=== PATIENT | female | born 1965 | race Caucasian/White ===

== ENCOUNTER 2022-01-25 08:07 | Outpatient (CLI) | payer OTHER, SELFPAY ==
[2022-01-25 21:10] LABS: Alanine Aminotransferase 7 U/L (6-35); Albumin Level 4.2 g/dL (3.5-5.1); Alkaline Phosphatase 72 U/L (38-126); Anion Gap 9 mmol/L (8-16); Aspartate Amino Transferase 25 U/L (14-36); Bilirubin,Total 0.5 mg/dL (0.2-1.3); Blood Urea Nitrogen 11 mg/dL (7-17); Calcium 9.3 mg/dL (8.4-10.2); Carbon Dioxide 25 mmol/L (22-30); Chloride 103 mmol/L (98-107); Cholesterol 237 mg/dL (0-200); Estimated Glomerular Filt Rate > 60; Glucose 128 mg/dL (65-110); HDL Direct 67 mg/dL; Sodium 137 mmol/L (137-145); Triglycerides 54 mg/dL (<150)
[2022-01-25 21:28] LABS: LDL Cholesterol Direct 132 mg/dL
[2022-01-25 21:35] LABS: Basophils Percent Auto 0.5 % (0.2-1.2); Eosinophils Percent Auto 0.5 % (0-4.4); Hematocrit 43.1 % (37.0-47.0); Hemoglobin 14.2 g/dL (12.0-15.0); Immature Granulocyte Absolute 0.01 K/mm3 (0.00-0.031); Immature Granulocyte Percent A 0.2 % (0-0.5); Lymphocytes Percent Auto 33.6 % (18.3-44.2); Mean Corpuscular HGB Conc 32.9 g/dl (32-36); Mean Corpuscular Hemoglobin 30.2 pg (26-34); Mean Corpuscular Volume 91.7 fl (80-100); Mean Platelet Volume 11.1 fl (7.4-10.4); Monocytes Absolute Auto 0.4 K/mm3 (0.1-0.6); Monocytes Percent Auto 8.9 % (2.6-8.5); Neutrophils Absolute Auto 2.4 K/mm3 (1.3-6.7); Neutrophils Percent Auto 56.3 % (45.5-73.1); Platelet Count Result 184 k/mm3 (150-375); Red Cell Distribution Width 12.4 % (11.5-14.5); White Blood Count 4.2 K/mm3 (4.5-10.0)
== END 2022-01-25 08:08 | disposition home or self-care (01) ==
PROVIDERS: PCP Emergency Medicine; Visit Provider Emergency Medicine
DX: Z00.00 Encounter for general adult medical examination without abnormal findings (principal)
CPT/HCPCS: 36415; 80053; 80061; 84443; 85025

== ENCOUNTER 2023-05-04 21:11 | Emergency (ER) | payer OTHER, SELFPAY ==
--- NOTE | ~2023-05-04 | XR_ITS ---
EXAMINATION: XR chest 1V portable INDICATION: Weakness TECHNIQUE: Portable AP chest at 2150 hours COMPARISON: 12/16/2012 FINDINGS: The lungs are free of acute opacities. No pleural effusion or pneumothorax. The cardiomedia stinal silhouette is normal. IMPRESSION: 1. No acute cardiopulmonary abnormality. Reviewed, dictated and finalized at location F. OBGYN
[2023-05-04 21:11] VITALS: BP 116/70; PULSE 104; RESP 23; TEMP 37.2; O2SAT 100
--- NOTE | 2023-05-04 21:23 | ECG_ITS ---
Measurements Intervals [place] Rate: 103 P: 75 WA: 149 QRS: 50 QRSD: 93 T: 54 QT: 344 QTc: 452 Interpretive Statements SINUS TACHYCARDIA POSSIBLE LEFT ATRIAL ENLARGEMENT MINIMAL Q WAVES- ANTEROLAT/INF LEADS BASELINE ARTIFACT- I, AVR, AVL BORDERLINE ECG ABNORMAL RHYTHM ECG NO PREVIOUS ECG AVAILABLE FOR COMPARISON Electronically Signed On 05-05-2023 6:54:44 PAYABLE PROCESSOR by Fede Gagnon D.O.
[2023-05-04 21:25] VITALS: O2SAT 99
[2023-05-04] MEDS: SODIUM CHLORIDE 0.9% IV 1,000 ML 999 ML IV CONT ×2 (21:29→22:23)
[2023-05-04] MEDS: ACETAMINOPHEN 500 MG TABLET 1000 MG PO (21:29)
[2023-05-04] MEDS: ONDANSETRON INJ 4 MG/2 ML VIAL IV PUSH (21:29)
[2023-05-04 21:33] VITALS: O2SAT 96
[2023-05-04 21:43] LABS: Basophils Percent Auto 0.5 % (0.2-1.2); Eosinophils Absolute Auto 0.1 K/mm3 (0-0.3); Eosinophils Percent Auto 1.3 % (0-4.4); Hematocrit 42.9 % (37.0-47.0); Hemoglobin 13.6 g/dL (12.0-15.0); Immature Granulocyte Absolute 0.02 K/mm3 (0.00-0.031); Immature Granulocyte Percent A 0.3 % (0-0.5); Lymphocytes Absolute Auto 3.27 K/mm3 (0.9-3.2); Lymphocytes Percent Auto 51.3 % (18.3-44.2); Mean Corpuscular HGB Conc 31.7 g/dl (32-36); Mean Corpuscular Hemoglobin 29.8 pg (26-34); Mean Corpuscular Volume 93.9 fl (80-100); Mean Platelet Volume 10.1 fl (7.4-10.4); Monocytes Absolute Auto 0.6 K/mm3 (0.1-0.6); Monocytes Percent Auto 9.7 % (2.6-8.5); Neutrophils Absolute Auto 2.4 K/mm3 (1.3-6.7); Neutrophils Percent Auto 36.9 % (45.5-73.1); Platelet Count Result 222 k/mm3 (150-375); Red Blood Count 4.57 M/mm3 (4.2-5.4); Red Cell Distribution Width 12.3 % (11.5-14.5); White Blood Count 6.4 K/mm3 (4.5-10.0)
[2023-05-04 21:54] LABS: Partial Thromboplastin Time 24.7 SECONDS (22.3-36.8); Prothrombin Time 13.4 Seconds (11.1-14.7)
[2023-05-04 22:04] LABS: Alanine Aminotransferase 30 U/L (6-35); Albumin Level 4.5 g/dL (3.5-5.1); Alkaline Phosphatase 75 U/L (38-126); Anion Gap 20 mmol/L (8-16); Aspartate Amino Transferase 23 U/L (14-36); Bilirubin,Total 0.3 mg/dL (0.2-1.3); Blood Urea Nitrogen 12 mg/dL (7-17); Calcium 8.9 mg/dL (8.4-10.2); Carbon Dioxide 16 mmol/L (22-30); Chloride 103 mmol/L (98-107); Estimated Glomerular Filt Rate > 60; Glucose 174 mg/dL (65-110); Lipase 192 U/L (23-300); Potassium 3.1 mmol/L (3.4-5.0); Sodium 139 mmol/L (137-145)
--- NOTE | 2023-05-04 22:12 | PC.NURSE ---
Pt noted to have increased HR. This RN entered room to find on stretcher with upper and lower extremity tremors. Pt able to answer questions and follow commands. EDP notified.
[2023-05-04 22:14] LABS: Lactic Acid Reflex 10.3 mmol/L (0.7-2.0)
[2023-05-04 22:16] VITALS: BP 120/93; PULSE 126; RESP 30
[2023-05-04 22:16] LABS: Troponin I < 0.012 ng/mL (0.000-0.034)
[2023-05-04] MEDS: LORazepam INJ (*CRX) 2 MG/ML VIAL 1 MG IV PUSH (22:20)
[2023-05-04 22:22] LABS: Influenza A QL RT-PCR Negative (Negative); Influenza B QL RT-PCR Negative (Negative); RSV RNA, RT-PCR Negative (Negative); SARS-CoV-2 RNA PCR Negative (Negative)
[2023-05-04 23:19] VITALS: BP 125/91; PULSE 113; RESP 22; O2SAT 97
[2023-05-04 23:20] LABS: Appearance Urine Cloudy (Clear); Bacteria Urine 4+ /hpf; Bilirubin Urine Negative (Negative); Blood Urine Negative (Negative); Color Urine Yellow (Yellow); Glucose Urine UA Negative (Negative); Ketones Urine Negative (Negative); Leukocyte Esterase Ur 1+ LEU/UL (Negative); Need Manual Microscopic Reviewed; Nitrate Urine Positive (Negative); Protein Urine Trace mg/dL (Negative); RBC Urine 0-2 /hpf (0-2); Specific Grav Ur 1.018 (1.001-1.035); Squamous Epithelial Cell Urine None seen /hpf (Few); Urobilinogen Urine 0.2 mg/dL (<2.0); WBC Urine 51-100 /hpf; pH Urine 5.5 (5.0-9.0)
[2023-05-04 23:33] LABS: Add Urine Microscopic? YES
[2023-05-04 23:41] VITALS: PULSE 108; RESP 13; O2SAT 98
[2023-05-05 00:04] VITALS: TEMP 36.8
[2023-05-05 00:08] LABS: Lactic Acid Reflex 1.1 mmol/L (0.7-2.0)
--- NOTE | 2023-05-05 00:08 | ED.GENADULT ---
HPI - General Adult General Chief complaint: Unspecified Stated complaint: SEVERE MUSCLE SPASMS Time Seen by Provider: 05/04/23 21:16 History of Present Illness HPI narrative: Patient is a 57-year-old female who presents emergency department with chief complaint of tremors. Patient has prior history of Parkinson's and tonight had issues with uncontrolled tremors at home. The patient was given Versed by EMS and also had to be given Ativan in the emergency department. The patient currently is resting comfortably with minimal tremor at this time. The patient states they recently just to the brand of her medications and has had difficulty sleeping and difficulty with controlling her tremors. Related Data Allergies Allergy/AdvReac Type Severity Reaction Status Date / Time Sulfa (Sulfonamide Allergy Mild Swelling Verified 05/04/23 21:25 Antibiotics) Review of Systems Review of Systems: A 10 system review of systems was completed on the patient and is negative except for what is stated in the HPI. Nursing and ancillary documentation was reviewed. [facility] Social History Social History Smoking packs per day: 0 Smoking cigarettes per day: 0.0 Years smoked: 0 Smoking pack-years: 0.00 Smoking status: Never smoker Second hand tobacco smoke exposure: No Alcohol intake: current Alcohol use details: wine rarely Substance use: never Substance use type: does not use Do You Feel Safe in your Home?: Yes Lack of Transportation: No Lack of Food: Never True Current Housing: I Have Housing Concerned About Future Housing: No Difficulty Paying Gas/Electric Bills: No Difficulty Paying for Meds: No Currently Unemployed: No Education: Bachelor's Degree Difficulty w/ Childcare or Family Care: No Living arrangements: with family Occupation/Education: occupation Gender identity (if verbalized by the patient): Female Sexual Orientation (if Verbalized by the Patient): Straight or Heterosexual Exam Narrative: GENERAL: Well-appearing, well-nourished, and in no acute distress. HEAD: Normocephalic, atraumatic. EYES: PERRLA and EOMI. ENT: Nares clear, no rhinorrhea or epistaxis. Mucous membranes moist. NECK: Supple. CHEST: Clear to auscultation. No respiratory distress. HEART: Regular rate and rhythm. No murmur heard. Normal peripheral pulses. ABDOMEN: Soft, nontender, nondistended, normal active bowel sounds. EXTREMITIES: Normal range of motion. No edema. SKIN: Warm, dry, no rash. NEURO: No focal deficits. Alert and oriented x3. PSYCH: Normal mood and affect. Course Vital Signs Vital signs: Vital Signs Temperature 37.2 C 05/04/23 21:11 Pulse Rate 104 H 05/04/23 21:11 Respiratory Rate 23 H 05/04/23 21:11 Blood Pressure 116/70 05/04/23 21:11 Pulse Oximetry 100 05/04/23 21:11 Oxygen Delivery Non-Rebreather Mask 05/04/23 21:11 Oxygen Flow Rate 15 05/04/23 21:11 Temperature 36.8 C 05/05/23 00:04 Pulse Rate 103 H 05/05/23 00:10 Respiratory Rate 14 05/05/23 00:10 Blood Pressure 130/80 05/05/23 00:10 Pulse Oximetry 98 05/05/23 00:10 Oxygen Delivery Room Air 05/04/23 21:33 Oxygen Flow Rate 15 05/04/23 21:25 Medical Decision Making [facility] Narrative Medical decision making narrative: Differential diagnosis includes Parkinson's tremor, seizure, UTI, pneumonia, viral syndrome Laboratory studies were obtained on the patient which showed evidence of UTI Vital Signs Vital Signs: Vital Signs Temperature 37.2 C 05/04/23 21:11 Pulse Rate 104 H 05/04/23 21:11 Respiratory Rate 23 H 05/04/23 21:11 Blood Pressure 116/70 05/04/23 21:11 Pulse Oximetry 100 05/04/23 21:11 Oxygen Delivery Non-Rebreather Mask 05/04/23 21:11 Oxygen Flow Rate 15 05/04/23 21:11 Temperature 36.8 C 05/05/23 00:04 Pulse Rate 103 H 05/05/23 00:10 Respiratory Rate 14
[2023-05-05 00:10] VITALS: BP 130/80; PULSE 103; RESP 14; O2SAT 98
[2023-05-05 00:35] LABS: Reflex Lactic Acid Yes or No Add Lactic
== END 2023-05-05 01:10 | disposition home or self-care (01) ==
PROVIDERS: Emergency Provider Emergency Medicine; PCP Emergency Medicine
DX: N39.0 Urinary tract infection, site not specified (principal); G20.A1 Parkinson's disease without dyskinesia, without mention of fluctuations; Z20.822 Contact with and (suspected) exposure to COVID-19; R94.31 Abnormal electrocardiogram [ECG] [EKG]; R00.0 Tachycardia, unspecified
CPT/HCPCS: 36415; 71045; 80053; 81001; 83605; 83690; 83735; 84145; 84484; 85025; 85610; 85730; 87040; 87077; 87086; 87186; 87637; 93005; 96361; 96365; 96374; 96375; 99284; A9270; J0696; J2060; J2405; J7030

== ENCOUNTER 2024-06-07 13:40 | Outpatient (CLI) | payer OTHER, SELFPAY ==
--- NOTE | ~2024-06-07 | US_ITS ---
Renal-Bladder ultrasound Clinical History: Hematuria Technique: Real-time sonographic imaging of the kidneys and urinary bladder was performed. Findings: The right kidney measures 10.7 cm in length and the left kidney measures 9.5 cm. There is n o hydronephrosis or renal calculus identified. Renal cortical echogenicity is within normal limits. N o renal mass lesion is identified. The urinary bladder is moderately distended at the time of this exam. No intraluminal echoes are iden tified. No abnormal wall thickening is seen. Impression: Unremarkable ultrasound of the kidneys and urinary bladder. Reviewed, dictated and finalized at location M. UCTION COORDINATOR Impression: Unremarkable ultrasound of the kidneys and urinary bladder.
== END 2024-06-07 13:41 | disposition home or self-care (01) ==
LOC: GOSHIMG 13:41
PROVIDERS: PCP Student in an Organized Health Care Education/Training Program; Visit Provider Student in an Organized Health Care Education/Training Program
DX: R31.9 Hematuria, unspecified (principal)
CPT/HCPCS: 76775

== ENCOUNTER 2025-03-14 10:48 | Outpatient (CLI) | payer OTHER, SELFPAY ==
[2025-03-14 11:02] LABS: Hematocrit 41.5 % (37.0-47.0); Hemoglobin 13.7 g/dL (12.0-15.0); Immature Granulocyte Percent A 0.2 % (0-0.5); Lymphocytes Absolute Auto 1.73 K/mm3 (0.9-3.2); Mean Corpuscular HGB Conc 33.0 g/dl (32-36); Mean Corpuscular Hemoglobin 30.5 pg (26-34); Mean Corpuscular Volume 92.4 fl (80-100); Nucleated Red Blood Cells Absolute Auto 0.000 K/mm3 (0.0-0.012); Nucleated Red Blood Cells Perc 0.0 % (0.0-0.2); Platelet Count Result 233 k/mm3 (150-375); Red Blood Count 4.49 M/mm3 (4.2-5.4); White Blood Count 4.3 K/mm3 (4.5-10.0)
[2025-03-14 12:12] LABS: Alanine Aminotransferase 12 U/L (6-35); Albumin Level 4.4 g/dL (3.5-5.1); Alkaline Phosphatase 70 U/L (38-126); Anion Gap 5 mmol/L (4-12); Aspartate Amino Transferase 39 U/L (14-36); Bilirubin,Total 0.8 mg/dL (0.2-1.3); Blood Urea Nitrogen 12 mg/dL (7-17); Calcium 9.2 mg/dL (8.4-10.2); Carbon Dioxide 27 mmol/L (22-30); Chloride 98 mmol/L (98-107); Estimated Glomerular Filt Rate > 60; Glucose 90 mg/dL (65-110); Potassium 3.9 mmol/L (3.4-5.0); Sodium 130 mmol/L (137-145); Total Protein 7.0 g/dL (6.3-8.2)
[2025-03-14 12:19] LABS: Immunoglobulin A 123 mg/dL (70-400); Immunoglobulin G 855 mg/dL (700-1600); Immunoglobulin M 345 mg/dL (40-230)
[2025-03-15 14:09] LABS: Albumin 3.7 g/dL (2.9-4.4); Alpha-1-Globulin 0.2 g/dL (0.0-0.4); Alpha-2-Globulin 0.4 g/dL (0.4-1.0); Gamma Globulin 1.0 g/dL (0.4-1.8)
== END 2025-03-14 10:49 | disposition home or self-care (01) ==
LOC: ANHLAB 10:50
PROVIDERS: Visit Provider Internal Medicine Hematology & Oncology
DX: R76.89 Other specified abnormal immunological findings in serum (principal)
CPT/HCPCS: 36415; 80053; 82784; 84155; 84165; 85025

== ENCOUNTER 2025-03-31 10:01 | Outpatient (CLI) | payer OTHER, SELFPAY ==
--- NOTE | 2025-03-31 10:00 | NEURO_ITS ---
Clinical note: Patient is a 59-year-old with complaints of numbness in both upper limbs. No history of diabetes mellitus or major trauma reported. Brief neurological examination shows no focal muscle wasting or fasciculations or weakness in both upper limbs. EMG and nerve conduction study findings are given below. Summary of findings: 1. Left and right median motor distal latency was significantly prolonged on the left and moderately prolonged on the right. Amplitude was significantly decreased on the left mildly decreased on the right. Conduction velocity however normal. 2. Left and right ulnar motor distal latency is prolonged on both sides more on the left than right side. Amplitudes are significantly decreased on both sides more on the left than right side. Conduction velocity him show mild slowing across the elbow on the left side and normal on the right side. 3. Right median palmar and digital sensory distal latencies are significantly prolonged amplitudes were decreased. Left median palmar and digital sensory were absent. Left and right ulnar sensory distal latencies were mildly prolonged and digital sensory amplitudes are moderately decreased left and right radial sensory distal latencies amplitudes within normal limits. 4. EMG examination was performed using a monopolar needle electrode. Various muscles examined in both upper limbs. Mild decreased recruitment was noted in the right 1st dorsal interossei and Both abductor pollicis brevis more on the left than right side. Impression: 1. Severe left and moderate right carpal tunnel syndrome. No denervation changes but mild to moderate decreased motor unit recruitment was noted in the abductor pollicis brevis, left more than right side 2. 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 No denervation changes were seen however mild decrease in recruitment was noted in the right 1st dorsal interossei. There is no evidence for peripheral neuropathy at this time however if further evaluation is desired EMG nerve can study of the lower limbs may be helpful. Makayla Gillespie MD, FAAN, FAANEM Neurology and electrodiagnostic Medicine Nerve Conduction Studies Motor Nerve Results ? Latency Amplitude F-Lat Segment Distance CV Comment Site (ms) (mV) (ms) (cm) (m/s) Left Median (APB) Motor Wrist 8.4 2.6 Elbow 12.5 2.8 Elbow-Wrist 200 49 Right Median (APB) Motor Wrist 5.6 5.7 Elbow 9.1 5.3 Elbow-Wrist 210 60 Left Ulnar (ADM) Motor Wrist 4.1 0.78 Bel Elbow 7.1 0.62 Bel Elbow-Wrist 170 57 Abv Elbow 9.1 0.62 Abv Elbow-Bel Elbow 80 40 Right Ulnar (ADM) Motor Wrist 3.7 1.57 Bel Elbow 7.4 1.55 Bel Elbow-Wrist 190 51 Abv Elbow 8.7 1.45 Abv Elbow-Bel Elbow 70 54 Sensory Nerve Results ? Latency (Peak) Amplitude (P-P) Segment Distance CV Comment Site (ms) (?V) (cm) (m/s) Right Median DigIII Sensory Wrist-Dig III 5.5 15 Wrist-Dig III 125 23 Left Median-Ulnar Palmar Sensory ? Median Palm-Wrist NR NR Palm-Wrist 80 NR ? Ulnar Palm-Wrist 2.6 15 Palm-Wrist 80 31 Right Median-Ulnar Palmar Sensory ? Median Palm-Wrist 3.7 9 Palm-Wrist 80 22 ? Ulnar Palm-Wrist 2.2 10 Palm-Wrist 80 36 Left Radial Sensory Forearm-Wrist 2.1 39 Forearm-Wrist 100 48 Right Radial Sensory Forearm-Wrist 2.1 30 Forearm-Wrist 100 48 Left Ulnar Sensory Wrist-Dig V 3.6 6 Wrist-Dig V 120 33 Right Ulnar Sensory Wrist-Dig V 4.1 9 Wrist-Dig V 125 30 Electromyography ?Side Muscle Nerve Ins Act Fibs Psw Amp Dur Recrt Comment Right Deltoid Axillary Nml Nml Nml Nml Nml Nml Right Biceps Musculocut Nml Nml Nml Nml Nml Nml Right Triceps Radial Nml Nml Nml Nml Nml Nml Right Ext Digitorum Radial (Post Int) Nml Nml Nml Nml Nml Nml Right ExtCarUln Radial (Post Int) Nml Nml Nml Nml Nml Nml Right Ext Indicis Radial (Post Int) Nml Nml Nml Nml Nml Nml Right FlexPolLong Median (Ant Int) Nml Nml Nml Nml Nml Nml Right 1stDorInt Ulnar Nml Nml Nml Nml >12ms +1 Right Abd Poll Brev Median Nml Nml Nml Decr >12ms +1 Right FlexDigProf Ulnar Nml Nml Nml Nml Nml Nml Right FlexCarRad Median Nml Nml Nml Nml Nml Nml Left Deltoid Axillary Nml Nml Nml Nml Nml Nml Left Biceps Musculocut Nml Nml Nml Nml Nml Nml Left Triceps Radial Nml Nml Nml Nml Nml Nml Left Ext Digitorum Radial (Post Int) Nml Nml Nml Nml Nml Nml Left ExtCarUln Radial (Post Int) Nml Nml Nml Nml Nml Nml Left Ext Indicis Radial (Post Int) Nml Nml Nml Nml Nml Nml Left FlexPolLong Median (Ant Int) Nml Nml Nml Nml Nml Nml Left 1stDorInt Ulnar Nml Nml Nml Nml Nml Nml Left Abd Poll Brev Median Nml Nml Nml Incr >12ms +2 Left FlexDigProf Ulnar Nml Nml Nml Nml Nml Nml Left FlexCarRad Median Nml Nml Nml Nml Nml Nml
--- OUTSIDE RECORDS SUMMARY | 2025-03-31 11:03 | XMS_ITS | Clinical Summary ---
Author Organization 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 Currently taking 1/2 every 2-3 hours (7 AM to 5 PM) for approx 5 doses per day., Indications: Parkinsonism, Reported on 01/19/2025 clonazePAM (KlonoPIN) 0.5 mg tablet Take 1 tablet (0.5 mg total) by mouth 2 (two) times a day Patient takes 1 tab at bedtime Active ondansetron ODT (ZOFRAN-ODT) 4 mg disintegrating tablet Take 1 tablet (4 mg total) by mouth every 8 (eight) hours as needed for nausea or vomiting 90 tablet 08/05/19 026 Active mirtazapine (Remeron) 15 mg tablet Take 0.5 tablets (7.5 mg total) by mouth nightly 15 tablet 11 07/01/20 25 07/01/2 026 Active Additional Information Patient not taking.Reported on 01/19/2025 amantadine (SYMMETREL) syrup 50 mg/5 mLIndications:Levo dopa-induced dyskinesias Take 5 mL (50 mg total) by mouth daily 150 mL 01/04/20 Active Additional Information Patient not taking.Reported on 01/19/2025 foscarbidopa-fosle vodopa 12-240 mg/mL solutionIndication s:Idiopathic Parkinsonism Administer Vyalev solution via continuous subcutaneous infusion and Vyafuser pump over 24 hours daily. Loading dose 0.80 mL. Loading dose lockout time 3 hours. Base rate 0.27 ml/hr. High rate 0.28 ml/hr. Low rate 0.26 ml/hr. Extra dose 0.10 mL as needed every 1 hour. 300 mL 01/20/20 Active escitalopram (LEXAPRO) 10 mg tablet Take 1 tablet (10 mg total) by mouth daily 30 tablet 01/20/20 Active Active Problems Problem Noted Date Diagnosed Date Generalized anxiety disorder 02/02/2025 Nausea 08/04/2024 Parkinson's disease with dys kinesia and fluctuating manifestations 09/25/2016 Assessment & Plan (02/02/2025 3:49 PM CDT): Images from the original note were not included. Ms. Sonya Avelar is a 59 y.o. old female with Sophie & Yahr stage Sophie & Yahr: 2 characterized by asymmetric resting tremor, action tremor, bradykinesia, and rigidity. In addition she had resting tremor, action tremor, bradykinesia, rigidity, facial expression, hypophonia, and difficulty arising from chairs. She first developed right hand resting tremor in 2013 followed over the next few years by action tremor, bradykinesia, rigidity, facial expression, hypophonia, arising from chairs, and difficulty arising from chairs. She was diagnosed with IPD in 2014 and was prescribed carbidopa-levodopa with good response. In 2015, she developed motor fluctuations with wearing off that affected her ADLs. The asymmetry of her symptoms, her definite response to levodopa and the absence of atypical features (such as prominent autonomic symptoms, cerebellar signs, long tract signs, significant eye movement abnormalities, etc) supports the diagnosis of idiopathic Parkinson disease and makes the diagnosis of other Parkinson Plus syndromes unlikely. The natural history of the illness and the treatment options (including the surgical ones) were extensively discussed with the patient and her . At the time of this evaluation, the motor benefit from each dose of carbidopa/levodopa IR 25/100 0.5 tablets (that she took every 2 hours) in addition to foslevodopa infusion lasted for only about 2-3 hours. She did not tolerate the addition of more dopaminergic therapy which caused dyskinesias, and was already taking amantadine as adjunctive therapy. She had resting tremor, action tremor, bradykinesia, rigidity, walking, facial expression, hypophonia, and difficulty arising from chairs which affect her ADLs and quality of life in the OFF state. Increasing medications has not been tolerable secondary to dyskinesias, while decreasing any of them will worsen her already bothersome resting tremor, action tremor, bradykinesia, rigidity, walking, freezing of gait, facial expression, and difficulty arising from chairs. Accordingly, she has failed medical treatment and would be a good candidate for bilateral deep brain stimulation (DBS) of the subthalamic nucleus (STN), especially given her predominant symptoms of resting tremor, action tremor, bradykinesia, rigidity, facial expression, arising from chairs, and difficulty arising from chairs. Indeed, she has no major medical illness and has little cognitive deficit by history and bedside exam. She will still need a pre-operative motor evaluation on and off medication and formal neuropsychological evaluation to establish her motor response to levodopa and the absence of a significant subclinical cognitive deficit. I discussed with her and her for over 81 minutes (0924 am to 1045 am) all aspects of this procedure (including its preoperative evaluation with possible neuropsychological and in-patient motor evaluation, the actual performance of the procedure, the potential benefits and complications and the post-surgical programming sessions and medication changes). I answered all their questions pertaining to the procedure. She would like to think about further evaluation for subthalamic nucleus (STN) DBS Surgery. We discussed the pros and cons of the [employer], [employer], and [employer] deep brain systems including battery size, battery longevity, unilateral vs. bilateral, rechargeable vs. primary cell, remote programming features, and programming features. She would use a rechargeable battery, but was not sure about the device. Finally, Recommendations: 1. Send subthalamic nucleus (STN) DBS packet. 2. Start Lexapro 10 mg 1 tablet in the morning. Monitor the anxiety and depression for about 6 weeks and update us. Contact us earlier if you feel you are having side effects 3. Continue carbidopa-levodopa IR at the same dose. 4. Instructions of foslevodopa pump per REAL [employer] notes. Marianela Cruz MD Assessment & Plan (01/19/2025 10:12 AM CDT): Mrs. Sonya Avelar is a 59 y.o. female with idiopathic Parkinson's disease (PD), complicated by motor fluctuations and dyskinesias. On 10/05/24 she was initiated on the foscarbidopa-foslevodopa subcutaneous infusion pump as an advanced therapeutic option for her advanced idiopathic Parkinson Disease with motor fluctuations and dyskinesias. She has not been interested yet in DBS. The motor benefit from each dose of carbidopa-levodopa IR 25/100 mg 1.5 tabs every 2 hours 6 times a day (waking hours around 6/7 AM to 9 PM) had latency to benefit of 30 minutes with at least 3 hours of OFF time per day due to delayed latency along with at least 2 hours at night once her evening dose had worn off. She had continued to experience motor fluctuations and bothersome dyskinesias, particularly in the end of the day. She has had very problematic end of dose dyskinesia in the evening, followed by a disabling off period with severe tremor. Her previously shared a video with her having generalized tremor, unable to stand, having to kneel on the ground and be supported by her . Clonazepam helps a little to ease down the tremor in the evening but she does not wish to stay on it alf (currently taking 3/4-1 tab of a 0.5 mg strength tab at night). Levodopa benefit historically blunted by food and she has nausea during the day though this may also be because she is taking it on an empty stomach. She previously trialed entacapone and dopamine agonist in the past without significant benefit. Her total daytime levodopa dosing was 900 mg as of 10/05/24. We pursued foscarbidopa-foslevodopa (Vyalev) for her advanced PD complicated by motor fluctuations and dyskinesias as this is significantly less invasive than duopa and does not require surgical placement of a PEG-J tube. Her calculated base rate, high rate, and low rate were previously calculated accordingly to the following based on 900 mg/day total daily levodopa based on her reporting of C/L IR 25/100 mg 1.5 tabs every 2 hours for 6 doses/day. Vyalev pump initially programmed as follows:base rate of 0.3 ml/hr, high rate 10% higher than the base at 0.33 ml/hr, and the low rate at 30% lower than the base at 0.21 ml/hr (given that she did not endorse bothersome nocturnal symptoms). Her extra dose was set at 0.10 mL. Recall that on 10/05, post extra-doses within 15-30 minutes she had obvious improvement in dystonia, dyskinesias, and gait. As she was never entirely OFF that day, I had not appreciated tremor then. She has continued to struggle with feeling sub-optimal ON time or ON time with resultant bothersome dyskinesias despite various dose adjustments. Although the severity of her motor fluctuations has improved, thus far she has not felt Vyalev to be superior to the levodopa pills in terms of predictability of ON time and peak ON time. Since last visit she has increased her oral levodopa regimen to 1/2 tab every 2-3 hours from approximately 7 AM to 5 PM and this along with the low rate of 0.28 mL/hr has given her benefit for tremor such that she now only has tremor more briefly in the evenings during her abrupt post-prandial OFF time. She has however had increasingly bothersome dyskinesias and more frequent dyskinesias. She no longer tolerates the higher rates or extra dose volume. She did not tolerate amantadine 100 mg due to sense of brain fog and reported some hand weakness correlating with amantadine 50 mg daily though I do not suspect this latter perceived potential SE was related. She does not have weakness on exam today. Perhaps this was more bradykinesia/OFF symptom though unclear. Even her current low rate of 0.28 mL results in far too bothersome of dyskinesias. We will lower her rates today as well as her extra dose volume though did discuss that at this juncture we have attempted to optimize the pump dosing and it is not expected we will achieve further benefit without exacerbating dyskinesias. She will be meeting with Dr. Ewing today to discuss DBS. Arrival Pump Settings: Base continuous rate: 0.29 ml/h High continuous rate: 0.30 ml/h Low continuous rate: 0.28 ml/h Extra dose: 0.15 ml with a lockout of 1 hour Loading dose: 0.80 ml with a lockout time of 3 hours consider potential to trial as an alterative extra dose though pump may not allow for this Final Pump Settings: Base continuous rate: 0.27 ml/h High continuous rate: 0.28 ml/h Low continuous rate: 0.26 ml/h Extra dose: 0.10 ml with a lockout of 1 hour Loading dose: 0.80 ml with a lockout time of 3 hours consider potential to trial as an alterative extra dose though pump may not allow for this Her dyskinesias though historically were reportedly wearing-OFF, when considered in the context of her other motor symptoms and persistent now during daytime without tremor, they appear to represent more of a peak-dose phenomenon in clinic. She does endorse that she has also had peak-dose dyskinesias in the past when she took extra oral levodopa. She likely was previously experiencing diphasic dyskinesias. As per prior visits, should follow-up with her PCP regarding her bradycardia, although there does appear to be chart history of this in his notes, I see no prior EKG and has been in 40s-50s in past office visits. Advised previously to avoid propranolol prn due to risk of exacerbating bradykinesia. Recommendations: Rates reduced as above AT visit today to discuss DBS with Dr. Ewing Advised to change cannula site every other day instead of every 3 days to prevent infection and reviewed site preparation and hygiene if any issues with the site See [facility] [facility], clonazepam, zofran recommendations and advisement to stop Zzzquil sleep aid. She is currently taking 0.375 mg of clonazepam (based on reporting of 3/4 tab of 0.5 mg strength) nightly for tremor. She should really consider starting the mirtazapine 7.5 mg nightly for sleep, anxiety, mood and appetite and stop the Zzzquil though she is apprehensive to trial a new drug Recommended finding a local therapist as adjunct for the anxiety PT referral for gait/balance training provided at recent visit At last visit discussed increasing caloric intake and adding nutritional supplements along with resuming the mirtazapine for weight loss likely in setting of her dyskinesia burden though should also ensure she's seeing her PCP to check her thyroid to rule out additional contributor Potential medication side effects were discussed during the encounter. Assessment & Plan (12/29/2024 9:39 AM CDT): Mrs. Sonya Avelar is a 59 y.o. female with idiopathic Parkinson's disease (PD), complicated by motor fluctuations and dyskinesias. On 10/05/24 she was initiated on the foscarbidopa-foslevodopa subcutaneous infusion pump as an advanced therapeutic option for her advanced idiopathic Parkinson Disease with motor fluctuations and dyskinesias. She has not been interested yet in DBS. The motor benefit from each dose of carbidopa-levodopa IR 25/100 mg 1.5 tabs every 2 hours 6 times a day (waking hours around 6/7 AM to 9 PM) had latency to benefit of 30 minutes with at least 3 hours of OFF time per day due to delayed latency along with at least 2 hours at night once her evening dose had worn off. She had continued to experience motor fluctuations and bothersome dyskinesias, particularly in the end of the day. She has had very problematic end of dose dyskinesia in the evening, followed by a disabling off period with severe tremor. Her previously shared a video with her having generalized tremor, unable to stand, having to kneel on the ground and be supported by her . 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 Levodopa benefit historically blunted by food and she has nausea during the day though this may also be because she is taking it on an empty stomach. She previously trialed entacapone and dopamine agonist in the past without significant benefit. Her total daytime levodopa dosing was 900 mg as of 10/05/24. We pursued foscarbidopa-foslevodopa (Vyalev) for her advanced PD complicated by motor fluctuations and dyskinesias as this is significantly less invasive than duopa and does not require surgical placement of a PEG-J tube. Her calculated base rate, high rate, and low rate were previously calculated accordingly to the following based on 900 mg/day total daily levodopa based on her reporting of C/L IR 25/100 mg 1.5 tabs every 2 hours for 6 doses/day. Vyalev pump setting were recalculated and pump initially reprogrammed as follows:base rate of 0.3 ml/hr, high rate 10% higher than the base at 0.33 ml/hr, and the low rate at 30% lower than the base at 0.21 ml/hr (given that she did not endorse bothersome nocturnal symptoms). Her extra dose was set at 0.10 mL. Recall that on 10/05, post extra-doses within 15-30 minutes she had obvious improvement in dystonia, dyskinesias, and gait. As she was never entirely OFF that day, I had not appreciated tremor then. She has continued to struggle with feeling sub-optimal ON time or ON time with resultant bothersome dyskinesias despite various dose adjustments. Although the severity of her motor fluctuations has improved, thus far she has not felt Vyalev to be superior to the levodopa pills in terms of predictability of ON time and peak ON time. Her current high of 0.31 ml/hr results in far too bothersome of dyskinesias and is not tolerated and her current base of 0.30 ml/hr feels too intense after 2 hours or so. We have never trialed 0.29 ml/hr and I've created a new base rate using this dosing. She has not trialed the extra dose during the morning at all despite her OFF time due to fear of resultant dyskinesias but has been using oral levodopa up to 1 tab/morning in divided doses with benefit. I encouraged her to trial the extra dose in the morning to assess for benefit. She still has evening episodes of abrupt dyskinesias followed by OFF time and also describes a different tremor in the peak ON state that she feels is from too much Vyalev. I asked that they share a video of these movements if able. Finally, I encouraged her to trial amantadine for the dyskinesias because if dyskinesia burden improved, she may be able to tolerate Vyalev better as thus far it is her only dose-limiting SE. Ultimately, we had a sebastian conversation today that if she does not feel that Vyalev is superior to oral levodopa despite optimization attempts then we can return to oral levodopa. We also briefly discussed DBS as a potential advanced therapy for her motor fluctuations and at this juncture she is agreeable to receiving DBS informational packets from our office and scheduling an advanced therapeutics physician visit with one of our DBS neurologist to discuss and consider further. Arrival Pump Settings: Base continuous rate: 0.30 ml/h High continuous rate: 0.31 ml/h Low continuous rate: 0.28 ml/h Extra dose: 0.15 ml with a lockout of 1 hour Loading dose: 0.80 ml Final Pump Settings: Base continuous rate: 0.29 ml/h High continuous rate: 0.30 ml/h Low continuous rate: 0.28 ml/h Extra dose: 0.15 ml with a lockout of 1 hour Loading dose: 0.80 ml with a lockout time of 3 hours consider potential to trial as an alterative extra dose though pump may not allow for this Her dyskinesias though historically were reportedly wearing-OFF, when considered in the context of her other motor symptoms they appear to represent more of a peak- dose phenomenon in clinic. She does endorse that she has also had peak-dose dyskinesias in the past when she took extra oral levodopa. This is characteristic of diphasic dyskinesias. As per prior visits, should follow-up with her PCP regarding her bradycardia, although there does appear to be chart history of this in his notes, I see no prior EKG and has been in 40s-50s in past office visits. Advised previously to avoid propranolol prn due to risk of exacerbating bradykinesia. Recommendations: Trial new base rate as above to see if provides better overall motor benefit without resultant bothersome dyskinesias No change in extra dose today (0.15 ml) Amantadine trial for dyskinesias and see if facilitates further optimization of foslevodopa pump to address motor symptoms while monitoring for SE and exacerbation of dystonia - she is apprehensive to add another med though will consider amantadine and update us next week Follow-up in 2 weeks for close follow-up, sooner prn Advised to change cannula site every other day instead of every 3 days to prevent infection and reviewed site preparation and hygiene See recent clinic visit 08/03/[address] Cruz for recent mirtazapine, clonazepam, zofran recommendations and advisement to stop Zzzquil sleep aid. She is currently taking 0.375 mg of clonazepam (based on reporting of 3/4 tab of 0.5 mg strength) nightly for tremor. Will continue this for now and trial wean once symptoms stabilized on pump. She has not yet started mirtazapine and we discussed resuming 7.5 mg nightly for sleep and anxiety/mood. She continues to use Zzzquil sleep aid at present and discouraged against this with preference for resuming the mirtazapine. PT referral for gait/balance training provided at recent visit At last visit discussed increasing caloric intake and adding nutritional supplements along with resuming the mirtazapine for weight loss likely in setting of her dyskinesia burden At last visit advised to check orthostatic blood pressures and follow-up with PCP re: bradycardia - avoid propranolol use Will request our office mail DBS information packets and schedule AT/DBS physician visit Potential medication side effects were discussed during the encounter. Assessment & Plan (12/10/2024 9:50 AM CDT): Mrs. Sonya Avelar is a 59 y.o. female with idiopathic Parkinson's disease (PD), complicated by motor fluctuations and dyskinesias. On 10/05/24 she was initiated on the foscarbidopa-foslevodopa subcutaneous infusion pump as an advanced therapeutic option for her advanced idiopathic Parkinson Disease with motor fluctuations and dyskinesias. She has not been interested yet in DBS. The motor benefit from each dose of carbidopa-levodopa IR 25/100 mg 1.5 tabs every 2 hours 6 times a day (waking hours around 6/7 AM to 9 PM) had latency to benefit of 30 minutes with at least 3 hours of OFF time per day due to delayed latency along with at least 2 hours at night once her evening dose had worn off. She had continued to experience motor fluctuations and bothersome dyskinesias, particularly in the end of the day. She has had very problematic end of dose dyskinesia in the evening, followed by a disabling off period with severe tremor. Her previously shared a video with her having generalized tremor, unable to stand, having to kneel on the ground and be supported by her . 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 Levodopa benefit historically blunted by food and she has nausea during the day though this may also be because she is taking it on an empty stomach. She previously trialed entacapone and dopamine agonist in the past without significant benefit. Her total daytime levodopa dosing was 900 mg as of 10/05/24. We have pursued foscarbidopa-foslevodopa (Vyalev) for her advanced PD complicated by motor fluctuations and dyskinesias as this is significantly less invasive than duopa and does not require surgical placement of a PEG-J tube. Her calculated base rate, high rate, and low rate were previously calculated accordingly to the following based on 900 mg/day total daily levodopa based on her reporting of C/L IR 25/100 mg 1.5 tabs every 2 hours for 6 doses/day. Vyalev pump setting were recalculated and pump initially reprogrammed as follows:base rate of 0.3 ml/hr, high rate 10% higher than the base at 0.33 ml/hr, and the low rate at 30% lower than the base at 0.21 ml/hr (given that she did not endorse bothersome nocturnal symptoms). Her extra dose was set at 0.10 mL. Recall that on 10/05, post extra-doses within 15-30 minutes she had obvious improvement in dystonia, dyskinesias, and gait. As she was never entirely OFF that day, I had not appreciated tremor then. Arrival Pump Settings: Base continuous rate: 0.31 ml/h High continuous rate: 0.32 ml/h Low continuous rate: 0.30 ml/h Extra dose: 0.15 ml with a lockout of 1 hour Loading dose: 0.80 ml with a lockout time of 3 hours (First AM dose of day is 150 mg of carbidopa-levodopa) Final Pump Settings: Base continuous rate: 0.30 ml/h High continuous rate: 0.31 ml/h Low continuous rate: 0.28 ml/h Extra dose: 0.15 ml with a lockout of 1 hour Loading dose: 0.20 ml with a lockout time of 3 hours consider potential to trial as an alterative extra dose though pump may not allow for this Her dyskinesias though historically were reportedly wearing-OFF, when considered in the context of her other motor symptoms they appear to represent more of a peak- dose phenomenon. She does endorse that she has also had peak-dose dyskinesias in the past when she took extra oral levodopa. As per prior visits, should follow-up with her PCP regarding her bradycardia, although there does appear to be chart history of this in his notes, I see no prior EKG and has been in 40s-50s in past office visits. Advised previously to avoid propranolol prn due to risk of exacerbating bradykinesia. Recommendations: Trial new rates as above to see if provides better overall motor benefit without resultant bothersome dyskinesias If the evening hour around 7 pm continues to be typical OFF time, then would recommend changing into the high rate 2 hours beforehand No change in extra dose today (0.15 ml) Consider amantadine trial for dyskinesias and see if facilitates further optimization of foslevodopa pump to address motor symptoms while monitoring for SE and exacerbation of dystonia - she is apprehensive to add another med though will consider amantadine and update us next week Follow-up in 2 weeks for close follow-up, sooner prn Advised to change cannula site every other day instead of every 3 days to prevent infection and reviewed site preparation and hygiene See recent clinic visit 08/03/[address] Cruz for recent mirtazapine, clonazepam, zofran recommendations and advisement to stop Zzzquil sleep aid. She is currently taking 0.375 mg of clonazepam (based on reporting of 3/4 tab of 0.5 mg strength) nightly for tremor. Will continue this for now and trial wean once symptoms stabilized on pump. She has not yet started mirtazapine and we discussed resuming 7.5 mg nightly for sleep and anxiety/mood. She continues to use Zzzquil sleep aid at present and discouraged against this with preference for resuming the mirtazapine. PT referral for gait/balance training provided at recent visit Discussed increasing caloric intake and adding nutritional supplements along with resuming the mirtazapine for weight loss likely in setting of her dyskinesia burden Check orthostatic blood pressures and follow-up with PCP re: bradycardia - avoid propranolol use Briefly discussed consideration of DBS evaluation referral if she is agreeable and Vyalev does not achieve better control of motor fluctuations Potential medication side effects were discussed during the encounter. Assessment & Plan (11/01/2024 9:16 AM CDT): Mrs. Sonya Avelar is a 59 y.o. female with idiopathic Parkinson's disease (PD), complicated by motor fluctuations and dyskinesias. On 10/05/24 she was initiated on the foscarbidopa-foslevodopa subcutaneous infusion pump as an advanced therapeutic option for her advanced idiopathic Parkinson Disease with motor fluctuations and dyskinesias. She has not been interested yet in DBS. The motor benefit from each dose of carbidopa-levodopa IR 25/100 mg 1.5 tabs every 2 hours 6 times a day (waking hours around 6/7 AM to 9 PM) had latency to benefit of 30 minutes with at least 3 hours of OFF time per day due to delayed latency along with at least 2 hours at night once her evening dose had worn off. She had continued to experience motor fluctuations and bothersome dyskinesias, particularly in the end of the day. She has had very problematic end of dose dyskinesia in the evening, followed by a disabling off period with severe tremor. Her previously shared a video with her having generalized tremor, unable to stand, having to kneel on the ground and be supported by her . Clonazepam helps a little to ease down the tremor in the evening but she does not wish to stay on it alf (currently taking 3/4 of a 0.5 mg tab at night). Levodopa benefit historically blunted by food and she has nausea during the day though this may also be because she is taking it on an empty stomach. She previously trialed entacapone and dopamine agonist in the past without significant benefit. Her total daytime levodopa dosing was 900 mg as of 10/05/24. We have pursued foscarbidopa-foslevodopa (Vyalev) for her advanced PD complicated by motor fluctuations and dyskinesias as this is significantly less invasive than duopa and does not require surgical placement of a PEG-J tube. Her calculated base rate, high rate, and low rate were previously calculated accordingly to the following based on 900 mg/day total daily levodopa based in today's reporting of C/L IR 25/100 mg 1.5 tabs every 2 hours for 6 doses/day. Vyalev pump setting were recalculated and pump initially reprogrammed as follows:base rate of 0.3 ml/hr, high rate 10% higher than the base at 0.33 ml/hr, and the low rate at 30% lower than the base at 0.21 ml/hr (given that she did not endorse bothersome nocturnal symptoms). Her extra dose was set at 0.10 mL. Recall that on 10/05, post extra-doses within 15-30 minutes she had obvious improvement in dystonia, dyskinesias, and gait. As she was never entirely OFF that day, I had not appreciated tremor then. Today, given her reporting that she has been quickly alternating between existing base, high, and extra doses and feeling best I re-evaluated her rates for optimization. She has been tolerating her existing base rate of 0.30 mL at all times, using it overnight with rare dyskinesias though this feels inadequate for motor symptoms. Her existing high rate of 0.33 ml/hr results in too bothersome of dyskinesias. As such, there are two alternative rate options in-between these two settings - 0.31 ml/hr and 0.32 ml/hr. Initial Pump Settings: Base continuous rate: 0.30 ml/h High continuous rate: 0.33 ml/h Low continuous rate: 0.27 ml/h Extra dose: 0.15 ml with a lockout of 1 hour Loading dose: 0.80 ml with a lockout time of 3 hours (First AM dose of day is 150 mg of carbidopa-levodopa) Final Pump Settings: Base continuous rate: 0.31 ml/h High continuous rate: 0.32 ml/h Low continuous rate: 0.30 ml/h Extra dose: 0.15 ml with a lockout of 1 hour Loading dose: 0.80 ml with a lockout time of 3 hours (First AM dose of day is 150 mg of carbidopa-levodopa) Her dyskinesias though historically were reportedly wearing-OFF, when considered in the context of her other motor symptoms they appear to mostly represent more of a peak-dose phenomenon. She does endorse that she has also had peak-dose dyskinesias in the past when she took extra oral levodopa. She has had some mild lightheadedness in the past while sitting and previous visit her orthostatic BP checked was 115/66 seated then 101/45 standing. Will recheck this in clinic today. Currently she only endorses some LH at her high rate. Although advised her to check OBP at home twice daily to trend, they relate she does not have BP cuff currently. Should follow-up with her PCP regarding her bradycardia, although there does appear to be chart history of this in his notes, I see no prior EKG and has been in 40s-50s in past office visits. Advised to avoid propranolol prn due to risk of exacerbating bradykinesia. Recommendations: Trial new rates as above to see if provides better overall motor benefit without resultant bothersome dyskinesias If the evening hour around 7 pm continues to be typical OFF time, then would recommend changing into the high rate 2 hours beforehand No change in extra dose today (0.15 ml) Consider amantadine trial for dyskinesias and see if facilitates further optimization of foslevodopa pump to address motor symptoms while monitoring for SE and exacerbation of dystonia Follow-up in 2 weeks for close follow-up, sooner prn Advised to change cannula site every other day instead of every 3 days to prevent infection and reviewed site preparation and hygiene See recent clinic visit 08/03/[address] Cruz for recent mirtazapine, clonazepam, zofran recommendations and advisement to stop Zzzquil sleep aid. She is currently taking 0.375 mg of clonazepam (based on reporting of 3/4 tab of 0.5 mg strength) nightly for tremor. Will continue this for now and trial wean once symptoms stabilized on pump. She has not yet started mirtazapine and we discussed resuming 7.5 mg nightly for sleep and anxiety/mood. She continues to use Zzzquil sleep aid at present. PT referral for gait/balance training provided at last visit Check orthostatic blood pressures and follow-up with PCP re: bradycardia - avoid propranolol use Potential medication side effects were discussed during the encounter. Assessment & Plan (10/15/2024 11:26 PM CDT): Ms. Sonya Avelar is a 59 y.o. female with idiopathic Parkinson's disease (PD), complicated by motor fluctuations and dyskinesias. On 10/05/24 she was initiated on the foscarbidopa-foslevodopa subcutaneous infusion pump as an advanced therapeutic option for her advanced idiopathic Parkinson Disease with motor fluctuations and dyskinesias. She has not been interested yet in DBS. The motor benefit from each dose of carbidopa-levodopa IR 25/100 mg 1.5 tabs every 2 hours 6 times a day (waking hours around 6/7 AM to 9 PM) had latency to benefit of 30 minutes with at least 3 hours of OFF time per day due to delayed latency along with at least 2 hours at night once her evening dose had worn off. She had continued to experience motor fluctuations and bothersome dyskinesias, particularly in the end of the day. She has had very problematic end of dose dyskinesia in the evening, followed by a disabling off period with severe tremor. Her previously shared a video with her having generalized tremor, unable to stand, having to kneel on the ground and be supported by her . Clonazepam helps a little to ease down the tremor in the evening but she does not wish to stay on it alf (currently taking 3/4 of a 0.5 mg tab at night). Levodopa benefit historically blunted by food and she has nausea during the day though this may also be because she is taking it on an empty stomach. She previously trialed entacapone and dopamine agonist in the past without significant benefit. Her total daytime levodopa dosing was 900 mg as of 10/05/24. Her calculated base rate, high rate, and low rate were previously calculated accordingly to the following based on 900 mg/day total daily levodopa based in today's reporting of C/L IR 25/100 mg 1.5 tabs every 2 hours for 6 doses/day. Vyalev pump setting were recalculated and pump initially reprogrammed as follows:base rate of 0.3 ml/hr, high rate 10% higher than the base at 0.33 ml/hr, and the low rate at 30% lower than the base at 0.21 ml/hr (given that she did not endorse bothersome nocturnal symptoms). Her extra dose was set at 0.10 mL. Recall that on 10/05, post extra-doses within 15-30 minutes she had obvious improvement in dystonia, dyskinesias, and gait. As she was never entirely OFF that day, I had not appreciated tremor then. Today, she did not have any tremor or rigidity. Her bradykinesia was improved from last visit though she did have dyskinesias as well as LLE dystonia observed while walking. Her MDS-UPDRS was better today at 21, compared to 34 at last visit. She has however been more bothered by the severity of her dyskinesias since last visit with the increase in her base and high rates. The increase in her low rate since last visit has been overall more helpful for early AM motor symptoms. Her dyskinesias though historically were reportedly wearing-OFF, when considered in the context of her other motor symptoms they appear to represent more of a peak- dose phenomenon. She does endorse that she has also had peak-dose dyskinesias in the past when she took extra oral levodopa. She has had some mild lightheadedness while sitting and at last visit her orthostatic BP checked was 115/66 seated then 101/45 standing. Will monitor this closely. Will advise to check OBP at home twice daily to trend. Should follow-up with her PCP regarding her bradycardia, although there does appear to be chart history of this in his notes, I see no prior EKG and has been in 40s-50s in past office visits. Advised to avoid propranolol prn due to risk of exacerbating bradykinesia. Initial Pump Settings: Base continuous rate: 0.31 ml/h High continuous rate: 0.34 ml/h Low continuous rate: 0.28 ml/h Extra dose: 0.15 ml with a lockout of 1 hour Loading dose: 0.80 ml with a lockout time of 3 hours (First AM dose of day is 150 mg of carbidopa-levodopa) Final Pump Settings: Base continuous rate: 0.30 ml/h High continuous rate: 0.33 ml/h Low continuous rate: 0.27 ml/h Extra dose: 0.15 ml with a lockout of 1 hour Loading dose: 0.80 ml with a lockout time of 3 hours (First AM dose of day is 150 mg of carbidopa-levodopa) Recommendations: Trial reduced rate changes to see if overall improvement in dyskinesias and dystonia, which today are primary complaint If the evening hour around 7 pm continues to be typical OFF time, then would recommend changing into the high rate 2 hours beforehand No change in extra dose today (0.15 ml from 0.10 mL earlier this week) Consider amantadine trial for dyskinesias and see if facilitates further optimization of foslevodopa pump to address motor symptoms while monitoring for SE and exacerbation of dystonia Follow-up 11/05/24 for close follow-up, sooner prn See patient's AVS for details regarding pump care/instructions See recent clinic visit 08/03/[address] Cruz for recent mirtazapine, clonazepam, zofran recommendations and advisement to stop Zzzquil sleep aid - no med changes today to avoid confounding clinical picture. She is currently taking 0.375 mg of clonazepam (based on reporting of 3/4 tab of 0.5 mg strength) nightly for tremor. Will continue this for now and trial wean once symptoms stabilized on pump. She has not yet started mirtazapine. She continues to use Zzzquil sleep aid at present. PT referral for gait/balance training Check orthostatic blood pressures and follow-up with PCP re: bradycardia - avoid propranolol use Potential medication side effects were discussed during the encounter. Assessment & Plan (10/11/2024 12:58 PM CDT): Ms. Sonya Avelar is a 59 y.o. female with idiopathic Parkinson's disease (PD), complicated by motor fluctuations and dyskinesias. On 10/05/24 she was initiated on the foscarbidopa-foslevodopa subcutaneous infusion pump as an advanced therapeutic option for her advanced idiopathic Parkinson Disease with motor fluctuations and dyskinesias. She has not been interested yet in DBS. The motor benefit from each dose of carbidopa-levodopa IR 25/100 mg 1.5 tabs every 2 hours 6 times a day (waking hours around 6/7 AM to 9 PM) had latency to benefit of 30 minutes with at least 3 hours of OFF time per day due to delayed latency along with at least 2 hours at night once her evening dose had worn off. She had continued to experience motor fluctuations and bothersome dyskinesias, particularly in the end of the day. She has had very problematic end of dose dyskinesia in the evening, followed by a disabling off period with severe tremor. Her previously shared a video with her having generalized tremor, unable to stand, having to kneel on the ground and be supported by her . 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 Levodopa benefit historically blunted by food and she has nausea during the day though this may also be because she is taking it on an empty stomach. She previously trialed entacapone and dopamine agonist in the past without significant benefit. Her total daytime levodopa dosing was 900 mg as of 10/05/24. Her calculated base rate, high rate, and low rate were previously calculated accordingly to the following based on 900 mg/day total daily levodopa based in today's reporting of C/L IR 25/100 mg 1.5 tabs every 2 hours for 6 doses/day. Vyalev pump setting were recalculated and pump initially reprogrammed as follows:base rate of 0.3 ml/hr, high rate 10% higher than the base at 0.33 ml/hr, and the low rate at 30% lower than the base at 0.21 ml/hr (given that she did not endorse bothersome nocturnal symptoms). Her extra dose was set at 0.10 mL. Recall that on 10/05, post extra-doses within 15-30 minutes she had obvious improvement in dystonia, dyskinesias, and gait. As she was never entirely OFF today I did not previously appreciate any tremor. Today, although not much rigidity, she did have dyskinesias as well as tremor, gait impairment with LLE dystonia and bradykinesia. She is reluctant to make big changes to settings and as she overall feels best in the base rate we will make a small adjustment to the base (to 0.31 ml/hr from 0.30 ml/hr - approx 2.5 % higher; had we averaged her extra dose accounting for five or so/day I would have adjusted her base to 0.33 but she has not spent much time trialing the high rate and is cautious). I increased her existing high rate to be 10% higher than the new base (0.34 ml/hr from 0.33 ml/hr). I increased her low rate from 0.21 ml/hr to 0.28 ml/hr which is approx 10% lower than her new base (also noting that the current low was inadequate for nocturnal symptoms but 0.30 ml/hr felt too high with resultant AM dyskinesias). Her dyskinesias though historically were reportedly wearing-OFF will now need to be considered in the context of her other motor symptoms as she has the potential for peak-dose dyskinesias with higher Vyalev. She does endorse today that she has also had peak-dose dyskinesias in the past when she took extra oral levodopa. I encouraged her not to make doses changes on Vyalev based on dyskinesias alone, but to also pay attention to her other motor symptoms to help guide her rate changes/extra dose (i.e. tremor, rigidity, dystonia, slowness of movement). She had some mild lightheadedness while sitting. Orthostatic BP checked as well 115/66 seated then 101/45 standing. Will monitor this closely. Will advise to check OBP at home twice daily to trend. Should follow-up with her PCP regarding her bradycardia, although there does appear to be chart history of this in his notes, I see no prior EKG and has been in 40s-50s in past office visits. Initial Pump Settings: Base continuous rate: 0.30 ml/h High continuous rate: 0.33 ml/h Low continuous rate: 0.21 ml/h Extra dose: 0.10 ml with a lockout of 1 hour Loading dose: 0.80 ml with a lockout time of 3 hours (First AM dose of day is 150 mg of carbidopa-levodopa) Final Pump Settings: Base continuous rate: 0.31 ml/h High continuous rate: 0.34 ml/h Low continuous rate: 0.28 ml/h Extra dose: 0.15 ml with a lockout of 1 hour Loading dose: 0.80 ml with a lockout time of 3 hours (First AM dose of day is 150 mg of carbidopa-levodopa) Recommendations: Follow-up Friday for Vyalv pump dosing optimization, also scheduled for next week for close follow-up See patient's AVS for details regarding pump care/instructions See recent clinic visit 08/03/[address] Cruz for recent mirtazapine, clonazepam, zofran recommendations and advisement to stop Zzzquil sleep aid - no med changes today to avoid confounding clinical picture. She is currently taking 0.375 mg of clonazepam (based on reporting of 3/4 tab of 0.5 mg strength) nightly for tremor. Will continue this and consider wean off at next visit. She has not yet started mirtazapine. She continues to use Zzzquil sleep aid at present. Consider PT referral at next visit for gait/balance training Check orthostatic blood pressures and follow-up with PCP re: bradycardia - avoid propranolol use Potential medication side effects were discussed during the encounter. Assessment & Plan (10/05/2024 2:02 PM CDT): Ms. Sonya Avelar is a 59 y.o. female with idiopathic Parkinson's disease (PD), complicated by motor fluctuations and dyskinesias. Today she presented to initiate the foscarbidopa-foslevodopa subcutaneous infusion pump as an advanced therapeutic option for her advanced idiopathic Parkinson Disease with motor fluctuations and dyskinesias. She is not interested in DBS at this time. The motor benefit from each dose of carbidopa-levodopa IR 25/100 mg 1.5 tabs every 2 hours 6 times a day (waking hours around 6/7 AM to 9 PM) has latency to benefit of 30 minutes with at least 3 hours of OFF time per day due to delayed latency along with at least 2 hours at night once her evening dose has worn off. She had continued to experience motor fluctuations and bothersome dyskinesias, particularly in the end of the day. She has had very problematic end of dose dyskinesia in the evening, followed by a disabling off period with severe tremor. Her previously shared a video with her having generalized tremor, unable to stand, having to kneel on the ground and be supported by her . Clonazepam helps a little to ease down the tremor in the evening but she does not wish to stay on it alf (currently taking 3/4 of a 0.5 mg tab at night). Levodopa benefit historically blunted by food and she has nausea during the day though this may also be because she is taking it on an empty stomach. She previously trialed entacapone and dopamine agonist in the past without significant benefit. Her total daytime levodopa dosing was 900 m as of 10/05/24. Her calculated base rate, high rate, and low rate were calculated accordingly to the following based on 900 mg/day total daily levodopa based in today's reporting of C/L IR 25/100 mg 1.5 tabs every 2 hours for 6 doses/day. Vyalev pump setting were recalculated and pump reprogrammed as follows with the base rate of 0.3 ml/hr, high rate 10% higher than the base at 0.33 ml/hr, and the low rate at 30% lower than the base at 0.21 ml/hr (given that she does not have bothersome nocturnal symptoms). We can consider reducing the low rate further at optimization visit if able. She has needed to use two extra dose (0.10 mL) since starting the infusion and I suspect we will need to increase her base rate at next visit but for now, will continue current settings and she may utilize the extra doses as needed. Tomorrow, if she continues to need to use 2 or more extra doses on the base rate, she can instead trial the high rate to see if this overall provides better motor benefit. Post extra-doses within 15-30 minutes she had obvious improvement in dystonia, dyskinesias, and gait. As she was never entirely OFF today I did not appreciate any tremor. When I re-examined her at 1 pm the extra dose was beginning to wear off with interval return of dyskinesias and dystonia, gait impairment though less compared to earlier in the day. She had improvement in rigidity and to lesser degree bradykinesia. MDS-UPDRS 31-->26. She had some mild lightheadedness while sitting. Orthostatic BP checked as well 123/77 seated and 110/65 standing. Will monitor this closely. If persisting or develops orthostasis, would have her check OBP at home twice daily to trend. Base continuous rate: 0.30 ml/h High continuous rate: 0.33 ml/h Low continuous rate: 0.21 ml/h Extra dose: 0.10 ml with a lockout of 1 hour Loading dose: 0.80 ml with a lockout time of 3 hours (First AM dose of day is 150 mg of carbidopa-levodopa) Recommendations: Follow-up in 1 week for Vyalv pump dosing optimization See patient's AVS for details regarding pump care/instructions See recent clinic visit 08/03/[address] Cruz for recent mirtazapine, clonazepam, zofran recommendations and advisement to stop Zzzquil sleep aid - no med changes today to avoid confounding clinical picture. She is currently taking 0.375 mg of clonazepam (based on reporting of 3/4 tab of 0.5 mg strength) nightly for tremor. Will continue this and consider wean off at next visit. She has not yet started mirtazapine. She continues to use Zzzquil sleep aid at present. Consider PT referral at next visit for gait/balance training Potential medication side effects were discussed during the encounter. Assessment & Plan (10/05/2024 10:31 AM CDT): Ms. Sonya Avelar is a 59 y.o. female with idiopathic Parkinson's disease (PD), complicated by motor fluctuations and dyskinesias. Today she presented to initiate the foscarbidopa-foslevodopa subcutaneous infusion pump as an advanced therapeutic option for her advanced idiopathic Parkinson Disease with motor fluctuations and dyskinesias. She is not interested in DBS at this time. At the time of this evaluation, the motor benefit from each dose of carbidopa-levodopa IR 25/100 mg 1.5 tabs every 2 hours 6 times a day (waking hours around 6/7 AM to 9 PM) has latency to benefit of 30 minutes with at least 3 hours of OFF time per day due to delayed latency along with at least 2 hours at night once her evening dose has worn off. She is already taking doses every 2 hours.She persists with noticeable motor fluctuations and bothersome dyskinesias, particularly in the end of the day. She has very problematic end of dose dyskinesia in the evening, followed by a disabling off period with severe tremor. Her previously shared a video with her having generalized tremor, unable to stand, having to kneel on the ground and be supported by her . Clonazepam helps a little to ease down the tremor in the evening but she does not wish to stay on it alf (currently taking 3/4 of a 0.5 mg tab at night). Levodopa benefit is blunted by food and she has nausea during the day though this may also be because she is taking it on an empty stomach. She has trialed entacapone and dopamine agonist in the past without significant benefit. Her total daytime levodopa dosing is 900 mg. Her calculated base rate, high rate, and low rate were calculated accordingly to the following based on 900 mg/day total daily levodopa based in today's reporting of C/L IR 25/100 mg 1.5 tabs every 2 hours for 6 doses/day. Vyalev pump setting were recalculated and pump reprogrammed as follows with the base rate of 0.3 ml/hr, high rate 10% higher than the base at 0.33 ml/hr, and the low rate at 30% lower than the base at 0.21 ml/hr (given that she does not have bothersome nocturnal symptoms). We can consider reducing the low rate further at optimization visit if able. Base continuous rate: 0.30 ml/h High continuous rate: 0.33 ml/h Low continuous rate: 0.21 ml/h Extra dose: 0.10 ml with a lockout of 1 hour Loading dose: 0.80 ml with a lockout time of 3 hours (First AM dose of day is 150 mg of carbidopa-levodopa) VYALEV PROGRAMMING Date Assessed 10/05/2024 Start Time 0835 Visit Type Initial Initial Medication Status On Pump Setting Status Arrival Base Continuous Rate 0.30ml/hr High Continuous Rate 0.33ml/hr Low Continuous Rate 0.21 ml/hr Extra Dose 0.10 ml Extra Lockout Time 3 hours Loading Dose Amount/Lockout 0.80 mL 3 hours Final Pump status On End Time 0940 Total Time 65 min I verified with Sonya Avelar and her that she had followed the storage and handling procedures for his supply of Vyalev. The medication vial was unopened and did not appear to have been tampered with. Delivery date/time: 09/09/2024 Medication name: Vyalev foscarbidopa and foslevodopa (12 mg foscarbidopa and 240 mg foslevodopa per mL solution) Pharmacy name: [facility] Date on medication label: N/A Quantity: 1 Vial (10 mL) Bottle Labeler: For [employer]. Lot #: [id number] Expiration date: 08/2025 Time and date of medication administration: 10/05/24 The visit began at 0820. Infusion pump set-up then began at 0835. The subcutaneous infusion site was established in the right-side of her abdomen lateral to the umbilicus and the subcutaneous infusion of foscarbidopa-foslevodopa was started at 0845. As she had taken her AM dose of carbidopa-levodopa at 6 AM today, we did not use the loading dose. Instead, the base rate was started at 0.30 mL/hr and she was given an extra dose of 0.10 mL at 0900 ending at 0902 at which point the base rate continuous infusion resumed. The visit ended at 0940. Total procedural time was 65 minutes for the infusion. Recommendations: 1. Follow-up at 1 pm to re-evaluate on the infusion 3. See recent clinic visit 08/03/[address] Cruz for recent mirtazapine, clonazepam, zofran recommendations and advisement to stop Zzzquil sleep aid Potential medication side effects were discussed during the encounter. Assessment & Plan (08/25/2024 6:18 AM CDT): Ms. Sonya Avelar is a 58 y.o. female with idiopathic Parkinson's disease (PD), complicated by motor fluctuations and dyskinesias. Today she presented to discuss the foscarbidopa-foslevodopa subcutaneous infusion pump as an advanced therapeutic option for her advanced idiopathic Parkinson Disease with motor fluctuations and dyskinesias. She is not interested in DBS at this time. At the time of this evaluation, the motor benefit from each dose of carbidopa-levodopa IR 25/100 mg 1.5 tabs every 2 hours 6 times a day (waking hours around 6/7 AM to 9 PM) has latency to benefit of 30 minutes with at least 3 hours of OFF time per day due to delayed latency along with at least 2 hours at night once her evening dose has worn off. She is already taking doses every 2 hours.She persists with noticeable motor fluctuations and bothersome dyskinesias, particularly in the end of the day. She has very problematic end of dose dyskinesia in the evening, followed by a disabling off period. Her shared another video with her having generalized tremor, unable to stand, having to kneel on the ground and be supported by her . Clonazepam helps a little to ease down the tremor in the evening. Levodopa benefit is blunted by food and she has nausea during the day though this may also be because she is taking it on an empty stomach. She has trialed entacapone and dopamine agonist in the past without significant benefit. Her total daytime levodopa dosing is 900 mg. Therefore, she is an good candidate for the foscarbidopa-foslevodopa (Vyalev) subcutaneous infusion pump. We discussed the medication, its side effects (including potential skin reactions/infection) and usage, reviewed a model of the pump device and equipment (i.e. cannula model, syringe, infusion tubing set-up), dosing strategies, and logistics of scheduling clinic visits for pump initiation and titration. She wishes to proceed with enrollment. Recommendations: Our office will submit for Vyalev enrollment Continue carbidopa-levodopa at the same dose See recent clinic visit 4/8/[address] Cruz for recent mirtazapine, clonazepam, zofran recommendations and advisement to stop Zzzquil sleep aid Potential medication side effects were discussed during the encounter. Assessment & Plan (08/04/2024 10:38 AM CDT): Ms. Sonya Avelar is a 58 y.o. female, who presents for follow-up for Parkinson's disease (PD), complicated by motor fluctuations and dyskinesias. She also has mood disorder. She is about the same since the last visit. She persists with noticeable motor fluctuations and bothersome dyskinesias, particularly in the end of the day. She has very problematic end of dose dyskinesia in the evening, followed by a disabling off period. Her shared another video with her having generalized tremor, unable to stand, having to kneel on the ground and be supported by her . Clonazepam helps a little to ease down the tremor in the evening. Levodopa effect is also limited by food and it causes nausea. She stopped taking mirtazapine initially due to a concern it might be making the tremor worse, but it did not. Mirtazapine helped with the mood. We had an extensive discussion about her symptoms. Her fluctuations are disabling and she would probably benefit from levodopa subcutaneous pump. We had an extensive discussion about the system and she agreed to meet our REAL TIME TRADER to discuss further the therapy. She has tried entacapone and dopamine agonist in the past without significant benefit. Additionally, we will resume mirtazapine at a low dose to help with the mood and use Zofran as needed for nausea. Plan: Visit for levodopa pump evaluation with Jacqueline Barton. Continue carbidopa-levodopa at the same dose. Resume mirtazapine 15 mg 0.5 tablet at bedtime for the mood. Continue clonazepam at the same dose. Consider stopping Zzzquil as a sleep aid. Start Zofran 4 mg 1 tablet three times a day as needed for nausea. Potential medication side effects were discussed during the encounter. Assessment & Plan (06/23/2024 12:54 PM SIDING INSTALLER): Mrs. Avelar continued to have shaking mostly at night when she was off. She took levodopa 25/100 mg 1.5 tabs 6 times a day (every 2 hours). Her last dose was 1715. We discussed trying levodopa 25/100 mg CR 1 tab at 1615. We also discussed her taking an extra tab in the middle of the night if needed. She tried 1.5 tab in the middle of the night and had bothersome dyskinesia the next day. Recommendations Continue th same levodopa 25/100 mg 1.5 tabs every 2 hours and may try 1 tab in the middle of the night if needed Start levodopa 25/100 mg CR 1 tab at 1615- journal response Will leave mirtazapine as is for now if you decide to take it again Follow up in one month Assessment & Plan (05/26/2024 9:04 AM SIDING INSTALLER): Mrs. Avelar presented for a follow up on worsening symptoms. She had more tremor with wearing off 30 minutes prior to her next levodopa dose. The tremor during the daytime was not really bothersome. After she took her last dose (1715), she had more tremor that was bothersome around 1930. Her had a video from this past Friday with her on the floor (hands and knees) with heavy breathing. She did appear to have termor in her head and legs. She was diagnosed with a UTI and finished antibiotics this past Friday and tested positive again for a UTI yesterday and was started on another course of antibiotics. We discussed at length that infections could worsen and flare of PD symptoms and usually symptoms improve and get back to baseline after the infection has cleared. Additionally, we discussed that if 1930 is her worse time we could certainly try different options to optimize this time of day (increasing the 1715 dose, trying a lower dose of levodopa CR and she had bothersome dyskinesia before, treating the dyskinesia or adding another dose of IR at bedtime and in the middle of the night if she gets up). Her wanted to know if she could take the lorazepam. I explained to him that she should modify her current medication regimen and optimize that prior to adding a BZO. She also had anxiety and we discussed her working with a therapist to develop coping mechanisms and strategies to hep her manage the anxiety. She did not really want to make medication changes. I explained to her that we could hold off for now until after her infection has cleared up then reevaluate how she is doing, but adjusting her medications or adding a medication are options for her to consider to optimize her bothersome PD symptoms. Her had FMLA paperwork that our office scanned into her chart and a message sent to appropriate staff for completion. Recommendations May increase mirtazapine 15 mg at bedtime for sleep Follow up in one month Please have urine tested maybe a week after you finish your current antibiotic course Same levodopa IR for now. Consider the following...increasing the 1715 dose to 2 tabs, adding a bedtime dose and retrying CR at bedtime when you are ready Consider a talk therapist Assessment & Plan (01/30/2024 11:37 AM CDT): Mrs. Avelar presented for worsening night time tremor. She took levodopa 25/100 mg 1.5 tab qid with her last dose at 1730. She usually went to bed around 2000- 2100. She tried levodopa CR before, but it gave her more bothersome dyskinesia. We discussed taking a dose of levodopa IR at bedtime. She did not want to take more medication. Her indicated that she mentioned the more medication she takes now, the less benefits she will get from the medication later on. We had a very at length discussion on benefits of the levodopa, adjusting the medication as needed, side effects and the progression of the disease. After the conversation, she agreed to try a extra dose to see if this helps with her nighttime tremor. She wanted a new prescription of mirtazapine [facility] in hopes of more consistency. We also discussed that if her sleep was better overall, but she still have some days her sleep was not good, we could consider increasing her mirtazapine, but she decline this at this time . Recommendations May try the new prescription on mirtazapine 7.5 mg 1 tab at bedtime for 2 weeks. If you feel your sleep is consistently better, let us know Increase the levodopa IR to 1.5 tabs 5 times a day. Please take a dose at bedtime and journal response with tremor Follow up in 3 months Assessment & Plan (07/08/2023 2:32 PM CDT): Mrs. Avelar is a 57 year old woman with a 10-year history of PD, starting with left arm tremor and now with tremor affecting all limbs, currently stage 2. She also has bradykinesia and rigidity worse on the right. She is very levodopa-responsive, such that during the day her tremors are nearly absent while the medication is working. She does have OFF-period dyskinesia, as well as foot dystonia. She is still walking independently and has only had one fall this year in the setting of using clonazepam, she has excellent recovery on the pull test. Currently, her highest concern is related to severe episodes of tremoring in the evening when wearing OFF, and waking up overnight with tremors which make it very difficult to fall back asleep. She does not that recently her sleep (and possibly her anxiety) have responded to mirtazapine 7.5mg, although she recently switched off of it due to a prior history of transitioning benzodiazepines weekly to maintain benefit. At this time, she would benefit from acute management of her OFF period shaking episodes, and possibly longer acting medication to provide benefit overnight. Additionally, she would likely do well with focused control her her anxiety and sleep. To address this later problem, restarting and remaining on mirtazapine would be useful. We discussed restarting 7.5mg mirtazapine with a possible increase to 15mg for additional benefit if needed. Would additional recommend avoiding benzodiazepines if possible. To address the specific episodes of severe shaking that occur once a week, a quick-onset medication to increase dopamine would be beneficial. We discussed inhaled inbrija vs injected apomorphine, and the risks and benefits of both. We also discussed the upcoming subcutaneous pump. Plan: - Restart mirtazapine 7.5mg at night, can increase to 15mg as needed for sleep and anxiety - Will order inbrija (48mg dose, two 42mg capsules at a time) for prior authorization to avoid future severe OFF period in the evenings and ED visits - Can try one tab of IR at bedtime to avoid overnight shaking - Continue current 1.5 tabs 4 times a day - Ok to take supplements. Vitamin C specifically helps with absorption, avoid mucuna pruriens (velvet beans) - Look up Parkinson's-specific exercises through the APDA Assessment & Plan (12/05/2020 9:05 AM CDT): As patient is having occasional early wear off in the afternoon hours I have given her the ability to use an extra 1.5 tablets of her Sinemet 25/100 on an as- needed basis in the mid afternoon. She will maintain her 4 time a day scheduled dosing otherwise. Her Sinemet has been renewed and she will follow-up in neurology clinic in a year. Assessment & Plan (06/21/2020 9:16 AM SIDING INSTALLER): Patient has a 4 year history of Parkinson's disease primarily manifest as slowness and stiffness. She was originally diagnosed at [facility] in medical records and imaging studies from [facility] have been reviewed. She subsequently transferred care to Dr. Mcclain in [place] and his medical records have also been reviewed. She continues at this time on Sinemet 25/100 1.5 tablets q.i.d. p.r.n.. Based on her historical description at this time I would continue her present medication as scheduled. I have renewed it is such and will see her back in 6 months time for reassessment. Persistent insomnia 09/25/2016 Mood disorder 09/25/2016 Assessment & Plan (12/05/2020 9:06 AM CDT): Patient will continue on propranolol 20 mg b.i.d. p.r.n. for performance anxiety. She currently is not in need of refill of medication. 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 basis. I have renewed her propranolol 20 mg b.i.d. p.r.n. as previously prescribed. 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 [address]th [place] [address] Marianela Dhaliwal MD Protein electrophoresis with reflex, serum with interpretation 02/23/2025 Telephone [facility] Nurse Navigation [address] [place] [address] Maisha Bauman, KJ Unsuccessful Phone Call 1 02/18/2025 [facility]phone [facility] Movement [facility] Medicine [address] [place] [phone] Kiarra Mckeon, KJ 02/18/2025 Orders Only [facility] Medicine Movement Disorders [address] [phone] Marianela Dhaliwal MD Neuropathy (Primary Dx) 02/18/2025 Orders Only [facility] Medicine Movement Disorders [address] [phone] Marianela Dhaliwal MD Parkinson's disease with dyskinesia and fluctuating manifestations (HCC) (Primary Dx) 02/09/2025 Telephone [facility] Nurse Navigation [address] [place] [address] Maisha Bauman, KJ Establish Care 02/08/2025 Orders Only [facility] Medicine Movement Disorders [address] [phone] Marianela Dhaliwal MD Parkinson's disease with dyskinesia and fluctuating manifestations (HCC) (Primary Dx) 02/07/2025 Telephone [facility] Medicine Movement Disorders [address] [place] [phone] Kiarra Mckeon, RN 01/24/2025 Telephone [facility] Medicine Movement Disorders [address] [place] [address] [place] [phone] Jennifer Enrique RN 01/19/2025 9:00 AM CDT Office Visit [facility] Medicine Movement Disorders [address] [place] [address] [place] [phone] Marianela Dhaliwal MD Parkinson's disease with dyskinesia and fluctuating manifestations (HCC) (Primary Dx); Dystonia; Generalized anxiety disorder 01/19/2025 8:00 AM CDT [facility] Movement Disorders [address] [place] [address] [address] [place] [address] Jacqueline Barton NP Parkinson's disease with dyskinesia and fluctuating manifestations (HCC) (Primary Dx) 01/03/2025 Orders [facility] Movement Disorders [address] [facility] [address] [place] [address] Jacqueline Barton NP from Last 3 Months Immunizations Immunization Administration Dates Next Due Influenza, Trivalent, Preservative Free, Intramu scular 01/26/2013 Surgical History Surgery Date Site/Laterality Comments NO PAST SURGERIES Medical History Medical History Date Comments Gestational diabetes Parkinson's disease (HCC) Family History Medical History Relation Name Comments No Known Problems Brother Diabetes Father Family history of diabetes mellitus - (Added by TW Conv) Arthritis Mother Family history of arthritis - (Added by TW Conv) Gout Mother Family history of gout - (Added by TW Conv) Hypertension Mother Family history of hypertension - (Added by TW Conv) Stroke Other Family history of cerebrovascular accident - Relation: Grandparent (Added by TW Conv) Relation Name Status Comments Brother Alive Father Alive Mother Alive Other Social History Tobacco Use Types Packs/Day Years Used Date Smoking Tobacco: Never Smokeless Tobacco: Never Tobacco Cessation:Counseling Given: Not Answered Comments Unknown Sex and Gender Information Value Date Recorded Sex Assigned at Not on file Legal Sex Female 2:26 AM SIDING INSTALLER Gender Identity Not on file Sexual Orientation Not on file Last Filed Vital Signs Vital Sign Reading Time Taken Comments Blood Pressure 122/48 01/19/2025 8:00 AM CDT Pulse 62 01/19/2025 8:00 AM CDT Temperature 36.8 C (98.3 F) 12/09/2024 10:42 AM CDT Respiratory Rate - - Oxygen Saturation 99% 01/19/2025 8:00 AM CDT Inhaled Oxygen Concentration - - Weight 44.1 kg (97 lb 3.6 oz) 01/19/2025 8:00 AM CDT Height 160 cm (5' 3) 01/19/2025 8:00 AM CDT Body Mass Index 17.22 01/19/2025 8:00 AM CDT Plan of Treatment Health Maintenance Due Date Last Done Comments Breast Cancer Screening-Mammogram 1965 Cervical Cancer Screening 1965 Colon Cancer Screening-Colonoscopy 1965 Hepatitis C Screening 1965 DTaP/Tdap/Td Vaccine (1 - Tdap) 1976 Hepatitis B Screening 10/01/1983 Regular Well Visit/Exam 18-64 10/01/1983 Zoster Vaccine (1 of 2) 10/01/2015 Depression Screening 07/07/2024 07/08/2023 Influenza Vaccine (#1) 2024 4, 01/31/2020, 02/12/2019, Additional history exists Pneumococcal vaccine <65 Aged Out No longer eligible based on patient's age to complete this topic Procedures Procedure Name Priority Date/Time Associated Diagnosis Comments PROTEIN ELECTROPHORESIS, WITH REFLEX, SERUM Routine 02/22/2025 11:31 AM CDT Parkinson's disease with dyskinesia and fluctuating manifestations (HCC) from Last 3 Months Results * Protein electrophoresis with reflex, serum with interpretation (02/22/2025 11:31 AM CDT) Protein, sr 6.4 6.0 - 8.5 g/dL [facility] - 01 Albumin 4.0 2.9 - 4.4 g/dL [facility] - 01 Alpha-1 globulin 0.2 0.0 - 0.4 g/dL [facility] - 01 Alpha-2 globulin 0.4 0.4 - 1.0 g/dL [facility] - 01 Beta Globulin 0.8 0.7 - 1.3 g/dL [facility] - 01 Gamma globulin 1.0 0.4 - 1.8 g/dL [facility] - 01 M-Suraj Not Observed Not Observed g/dL [facility] - 01 Globulin 2.4 2.2 - 3.9 g/dL [facility] - 01 Alb/glob ratio 1.7 0.7 - 1.7 [facility] - 01 Please Note: Comment [facility] - 01 Comment: Protein electrophoresis scan will follow via computer, mail, or septic tank service technician delivery. Blood 02/22/2025 11:3 1 AM CDT 02/22/2025 Narrative [facility] - 02/23/2025 3:10 PM CDT Performed at: [address] [place] [address], [place], [place] [id number] Chicken Sexer: Bladimir Ortega PhD, Phone: [phone] Marianela Cruz MD LAB BLOOD ORDERABLES Final Result Performing Organization Address City/State/[facility] Co de Phone Number [facility] - 01 from Last 3 Months Insurance [facility] Care Teams Body Painter Relationship Specialty Start Date End Date Fco Gale MD PCP - General Internal Medicine 01/31/25 Maisha Bauman, RN [address] [place] [address] Nurse Navigator 02/09/25
--- OUTSIDE RECORDS SUMMARY | 2025-03-31 11:03 | XMS_ITS | Patient Health Record ---
Author Organization [facility] [employer] Address [address] [facility] [address] [place] [address] Care Team Providers Care Washroom Cleaner Name Role Phone Rima Barreto Unavailable [phone] Allergies Allergen (clinical drug ingredient) Drug/Non Drug Allergy documented on EMR Reaction Allergy Type Onset Date Status Substance with sulfonamide structure and antibacterial mechanism of action (substance) SULFA (SULFONAMIDE ANTIBIOTICS) (uncoded) Unknown Allergy 06/05/2023 Active Results Component Value Reference Range Notes UDT Reviewed date:06/24/2024 04:32:13 PM Interpretation: Performing Lab: Notes/Report: Amphetamine (AMP) n 0 - 1000 ng/ml Buprenorphine (BUP) n 0 - 10 ng/ml Oxazepam (BZO) n 0 - 300 ng/ml Cocaine (JULIAN) n 0 - 300 ng/ml Methamphetamine (mAMP) n 0 - 300 ng/ml Methylenedioxymethamphetamine (MDMA) n 0 - 500 ng/ml Morphine (MOP) n 0 - 25 ng/ml Methadone (MTD) n 0 - 300 ng/ml Oxycodone (OXY) n 0 - 300 ng/ml THC n 0 - 50 ng/ml x n 0 - 1000 ng/ml x n 0 - 1000 ng/ml x n 0 - 300 ng/ml x n 0 - 300 ng/ml Reason For Referral No Information Medications Medication SIG (Take, Route, Frequency, Duration) Notes Start Date End Date Status Carbidopa-Levodopa ER 50-200 mg Tablet Extended Release Oral 06/18/2023 Active Carbidopa-Levodopa 25-100 MG Tablet Oral 06/18/2023 Active Klor-Con M20 20 MEQ Tablet Extended Release Oral 06/18/2023 Acti ve clonazePAM 0.5 MG Tablet 1 tablet Orally Once a day; Duration: 30 days 06/24/2024 Active Amantadine HCl 100 MG Tablet Oral 06/18/2023 Active clonazePAM 0.5 MG Tablet 1 tablet Orally Once a day Active Mirtazapine 15 MG Tablet Oral 06/18/2023 Active Cephalexin 500 MG Capsule Oral 06/18/2023 Not-Taking Social History Tobacco Use: Social History Observation Description Date Details (start date - stop date) Never Smoker NA - NA Sex Assigned At : Social History Observation Description Sex Assigned At Female Social History Miscellaneous: Social Info Question Answer Notes Advance Care Planning Are you your own decision-maker Yes Do you have Power of Irrigation Equipment Mechanic for Health or [facility]? No Safety issues: Are there any firearms in the house? Ye s Social History Social Info Question Answer Notes Household: Marital Status: Number of Adults in household: 2 Number of Children in Household: 1 Level of Education: Not Finished College Drug/Alcohol: Social Info Question Answer Notes AUDIT-C (Standard) Did you have a drink containing alcohol in the past year? Yes How often did you have a drink containing alcohol in the past year? Monthly or less (1 point) Tobacco Use: Social Info Question Answer Notes Tobacco Control (Standard) Tobacco use: Nonsmoker Additional Details Category Social Info Options Details Migrated Social History Migrated Social History Tobacco Years: Never smoker 05/15/2023 Problems Problem Type SNOMED Code ICD Code Onset Dates Problem Status W/U Status Risk Notes Problem Generalized anxiety disorder (04291359) Generalized anxiety disorder (F41.1) Active confirmed Problem Primary insomnia (2813337) Primary insomnia (F51.01) Active confirmed Vital Signs Heart Rate 44 /min 06/24/2024 Height-cm 160.02 cm 06/24/2024 Blood pressure diastolic 72 mm Hg 06/24/2024 Weight-kg 48.99 kg 06/24/2024 Height 63.00 in 06/24/2024 Blood pressure systolic 116 mm Hg 06/24/2024 Weight 108 lbs 06/24/2024 BMI 19.13 kg/m2 06/24/2024 Encounters Encounter Location Date Provider Diagnosis [facility] [employer] [facility] [address] [address] 06/24/2024 Rima Kurilla Primary insomnia F51.01 and Generalized anxiety disorder F41.1 [facility] [employer] [address] [facility] [address] [place] [address] 06/15/2024 Rima Barreto Assessments Encounter Date Diagnosis (ICD Code) Assessment Notes Treatment Notes Treatment Clinical Notes Section Notes 06/24/2024 Generalized anxiety disorder (ICD-10 - F41.1) 06/24/2024 Primary insomnia (ICD-10 - F51.01) 06/24/2024 Other Continue clonazepam 0.5mg qHS. -discussed taking medication earlier in the evening to help with hangover drowsiness. --if no improvement, take half a tablet nightly. Patient educated on all medications including potential benefits, side effects, risks. Educated on proper dosing schedule and importance of compliance. [place] PDMP report checked and consistent with prescription history, no controlled substance prescriptions from other providers. -Assessment and treatment plan reviewed with patient. -Compliance with treatment plan importance discussed. -Discussed the risks/benefits of this medication -Discussed medication side effects. -Contact office if symptoms worsen. -Discussed that it can take up to 6-8 weeks to see full therapeutic effects of psychotropic medications. -Crisis prevention hotline 988. Plan Of Treatment No Information Insurance Providers Payer Name Payer Address Payer Phone Subscriber Number Group Number Insured Name Patient Relationship to Insured Coverage Start Date Coverage End Date [employer] Pos [address] [place] [id number] CLYDE JACKSON Self - patient is the insured Medical (General) History Medical History History ICD Code Problems: Generalized anxiety disorder Primary insomnia ,
--- OUTSIDE RECORDS SUMMARY | 2025-03-31 11:03 | XMS_ITS | Clinical Summary ---
Author Organization [facility] Address [address] [place] [address] Care Team Providers Care Distribution Sales Manager Name Role Phone Unavailable Primary Care Provider Unavailabl e Allergies Active Allergy Reactions Criticality Noted Date Comments Sulfa (Sulfonamide Antibiotics) Hives High 10/26 Medications clonazePAM (KlonoPIN) 1 mg tablet Take 1 mg by mouth 2 times daily. Active mirtazapine (REMERON) 7.5 mg tablet Take 7.5 mg by mouth daily at bedtime. Active Active Problems No known active problems Encounters Date Type Department Care Team Description 03/17/2025 Abstract [facility] Oncology and Hematology [facility] [address] [place] [address] Ashwin Lombardi MD 03/15/2025 External Device Data [facility]STRACTION Provider, Abstract 03/15/2025 External Device Data [facility] Provider, Abstract 03/15/2025 External Device Data [facility] Provider, Abstract 03/14/2025 10:00 AM AIRPLANE MECHANIC APPRENTICE Office Visit [facility] Oncology and Hematology [place] [address] [place] [address] Heather Marr MD Elevated immunoglobulin E level (Primary Dx) from Last 3 Months Family History Medical History Relation Name Comments No Known Problems Brother No Known Problems Child Diabetes Father Diabetes Mother bladder cancer Paternal Grandmother Relation Name Status Comments Brother Alive Child Alive Father Alive Mother Alive Paternal Grandmother Social History Tobacco Use Types Packs/Day Years Used Date Smoking Tobacco: Never Smokeless Tobacco: Never Alcohol Use Standard Drinks/Week Comments Never 0 (1 standard drink = 0.6 oz pur e alcohol) Comments Unknown Sex and Gender Information Value Date Recorded Sex Assigned at Not on file Legal Sex Female 10:05 AM CDT Gender Identity Not on file Sexual Orientation Not on file Last Filed Vital Signs Vital Sign Reading Time Taken Comments Blood Pressure 115/63 03/14/2025 9:47 AM AIRPLANE MECHANIC APPRENTICE Pulse 50 03/14/2025 9:47 AM AIRPLANE MECHANIC APPRENTICE Temperature 36.8 C (98.3 F) 03/14/2025 9:47 AM AIRPLANE MECHANIC APPRENTICE Respiratory Rate 15 03/14/2025 9:47 AM AIRPLANE MECHANIC APPRENTICE Oxygen Saturation 99% 03/14/2025 9:47 AM AIRPLANE MECHANIC APPRENTICE Inhaled Oxygen Concentration - - Weight 42 kg (92 lb 9.6 oz) 03/14/2025 9:[address] Height 162.6 cm (5' 4) 03/14/2025 9:47 AM AIRPLANE MECHANIC APPRENTICE Body Mass Index 15.89 03/14/2025 9:47 AM AIRPLANE MECHANIC APPRENTICE Plan of Treatment Upcoming Encounters Date Type Department Care Team (Late st Contact Info) Description 04/11/2025 11:30 AM AIRPLANE MECHANIC APPRENTICE Office Visit [facility] Oncology and Hematology - [place] [address] [facility] [address] [place] [address] Ashwin Lombardi MD [address] [facility] [address] [place] [address] Health Maintenance Due Date Last Done Comments DTAP/TDAP/TD VACCINES (1 - Tdap) 1984 HEPATITIS B VACCINES (1 of 3 - 19+ 3-dose series) 08/1984 HPV/Cotest (21-29) 1986 CERVICAL CANCER SCREENING 10/01/1995 HPV/Cotest (30-65) 10/01/1995 PAP SMEAR 10/01/1995 BREAST CANCER SCREENING 2005 COLORECTAL SCREENING 2010 Colorectal Cancer Screening 2010 FIT-DNA Q 3 years 2010 FIT/FOBT Q 1 year 2010 Flex Sig/CT Colonography Q 5 years 2010 ZOSTER VACCINE (1 of 2) 10/01/2015 INFLUENZA VACCINE (#1) 2024 01/26/2013 Insurance RX [facility] [employer] CHOICE POS II
--- OUTSIDE RECORDS SUMMARY | 2025-03-31 11:03 | XMS_ITS | Encounter Summary ---
Author Organization [facility] Address [address] [place] [address] Phone Care Team Providers Care Certified Scrub Tech Name Role Phone Fco Gale MD Primary Care Provider [phone] Maisha Bauman RN Unavailable [phone] Encounter Details Date Type Department Care Team (Latest Contact Info) Description 02/24/2025 Results Follow-Up [facility] Medicine Movement Disorders [address] [facility] [address] [place] [address] Marianela Boyle MD [address] [place], [place] [id number] Protein electrophoresis with reflex, serum with interpretation Social History Tobacco Use Types Packs/Day Years Used Date Smoking Tobacco: Never Smokeless Tobacco: Never Comments Unknown Sex and Gender Information Value Date Recorded Sex Assigned at Not on file Legal Sex Female 2:26 AM REGISTERED NURSE SURGICAL SERVICES Gender Identity Not on file Sexual Orientation Not on file documented as of this encounter Miscellaneous Notes * Telephone Encounter - Kiarra Mckeon RN - 02/28/2025 11:01 AM CST Thanks. EMG order was also sent and phone number given to patient to schedule. ----- Message from Marianela Cruz MD sent at 02/24/2025 3:00 PM CDT ----- This is a normal study, which was done to investigate possible neuropathy. ----- Message ----- From: Interface, [facility] Lab Results In Sent: 02/23/2025 2:11 PM CDT To: Marianela Cruz MD [facility] N[facility]SE [facility]GICAL [facility] documented in this encounter Plan of Treatment Not on file documented as of this encounter Visit Diagnoses Not on filedocumented in this encounter Care Teams Certified Scrub Tech Relationship Specialty Start Date End Date Fco Gale MD PCP - General Internal Medicine 01/31/25 Maisha Bauman, RN [address] [place] [address] Nurse Navigator 02/09/25 documented as of this encounter
== END 2025-03-31 10:02 | disposition home or self-care (01) ==
PROVIDERS: PCP Internal Medicine; Visit Provider Psychiatry & Neurology Neurology
DX: G56.03 Carpal tunnel syndrome, bilateral upper limbs (principal); G56.23 Lesion of ulnar nerve, bilateral upper limbs; G20.B2 Parkinson's disease with dyskinesia, with fluctuations
CPT/HCPCS: 95886; 95911